=== PATIENT | female | born 1965 | race Caucasian/White ===

== ENCOUNTER 2017-08-06 06:13 | Inpatient (IN) | payer BC ==
[2017-08-06] MEDS ORDERED: ROCURONIUM 50 MG INJ ×2 (07:00→08:42)
[2017-08-06] MEDS ORDERED: PROPOFOL 200 MG INJ (07:00)
[2017-08-06] MEDS ORDERED: METOCLOPRAMIDE 10 MG INJ (07:00)
[2017-08-06] MEDS ORDERED: ONDANSETRON 4 MG INJ (07:00)
[2017-08-06] MEDS ORDERED: PROPOFOL 20 ML (07:51)
[2017-08-06] MEDS ORDERED: FENTAnyl 50 MCG/ML VIAL ×2 (07:51→08:42)
[2017-08-06] MEDS ORDERED: MIDAZOLAM 1 MG/ML 2 ML INJ (07:51)
[2017-08-06] MEDS: GELATIN SIZE 100 SPONGE (08:39)
[2017-08-06] MEDS: THROMBIN 5000 UNIT VIAL (08:39)
[2017-08-06] MEDS: POLYMYXIN/BACITRACIN 1L IRRIG (08:39)
[2017-08-06] MEDS: BUPIVACAINE 0.25%/EPI (MDV) 50 ML VIAL INJ (08:39)
[2017-08-06] MEDS ORDERED: LIDOCAINE 2% (SDV) 5 ML INJ (08:41)
[2017-08-06] MEDS ORDERED: SUCCINYLCHOLINE CHLORIDE 100 MG/5 ML SYG IV (08:41)
[2017-08-06] MEDS ORDERED: DEXAMETHASONE 4 MG/ML 1 ML INJ ×2 (08:42→13:05)
[2017-08-06] MEDS ORDERED: hydrALAzine 20 MG INJ (09:37)
[2017-08-06] MEDS ORDERED: LABETALOL HCL 20MG INJ (10:39)
[2017-08-06] MEDS ORDERED: HYDROmorphONE 2 MG/ML SYG (10:44)
[2017-08-06] MEDS ORDERED: PHENYLephrine (100 MCG/ML) 5ML SYG (10:57)
[2017-08-06] MEDS ORDERED: CLINDAMYCIN 900 MG/D5W (PMX) 50 ML IVPB (11:23)
[2017-08-06] MEDS ORDERED: LABETALOL HCL 20MG INJ IV (14:00)
[2017-08-06] MEDS ORDERED: hydrALAzine 20 MG INJ IV (14:00)
[2017-08-06] MEDS ORDERED: PROCHLORPERAZINE 10 MG TAB PO (14:00)
[2017-08-06] MEDS ORDERED: FENTAnyl 50 MCG/ML VIAL IV ×2 (14:00)
[2017-08-06] MEDS ORDERED: ACETAMINOPHEN 325 MG TAB PO (14:00)
[2017-08-06] MEDS ORDERED: IPRATROPIUM (NEB) 0.5 MG/2.5 ML AMP HHN (14:00)
[2017-08-06] MEDS ORDERED: NALOXONE (0.4 MG/ML) INJ IV (14:00)
[2017-08-06] MEDS ORDERED: DIPHENHYDRAMINE 50 MG INJ IV (14:00)
[2017-08-06] MEDS ORDERED: HYDROCODONE/APAP (5/325) TAB PO (14:00)
[2017-08-06] MEDS ORDERED: NACL 0.9% 3 ML SYG IV (14:00)
[2017-08-06] MEDS ORDERED: ONDANSETRON 4 MG INJ IV (14:00)
[2017-08-06] MEDS ORDERED: HYDROmorphONE 1 MG/5 ML IV SYRINGE IV ×2 (14:00)
[2017-08-06] MEDS ORDERED: MEPERIDINE 25 MG INJ (14:23)
[2017-08-06] MEDS: MEPERIDINE 25 MG INJ IV ×2 (14:54→17:34)
[2017-08-06] MEDS: HYDROmorphONE 1 MG/5 ML IV SYRINGE IV ×3 (15:15→16:27)
[2017-08-06] MEDS: ONDANSETRON 4 MG INJ IV (15:51)
[2017-08-06] MEDS: VANCOMYCIN 1 GM (PMX) 250 ML IVPB (16:40)
[2017-08-06] MEDS: HYDROmorphONE 0.5 MG/0.5 ML SYG IV ×2 (19:46→23:03)
[2017-08-06] MEDS: traZODone 100 MG TAB PO (21:08)
[2017-08-06] MEDS: morphine (ER) 15 MG TAB PO (21:08)
[2017-08-06] MEDS: PROGESTERONE 100 MG CAP PO (21:48)
[2017-08-07] MEDS: VANCOMYCIN 1 GM (PMX) 250 ML IVPB (04:17)
[2017-08-07 05:07] LABS: HEMOGLOBIN 14.4 g/dl (12.0-16.0)
[2017-08-07] MEDS: HYDROmorphONE 0.5 MG/0.5 ML SYG IV ×2 (05:15→11:25)
[2017-08-07 05:33] LABS: ANION GAP 16 (8-16); BLOOD UREA NITROGEN 12 mg/dl (7-20); CALCIUM 9.1 mg/dl (8.4-10.2); CARBON DIOXIDE 27 mmol/L (21-31); CHLORIDE 102 mmol/L (97-110); GLUCOSE 129 mg/dl (70-220); POTASSIUM 4.5 mmol/L (3.5-5.1); SODIUM 140 mmol/L (135-144)
[2017-08-07] MEDS: ESTRADIOL 1 MG TAB PO (08:48)
[2017-08-07] MEDS: morphine (ER) 15 MG TAB PO ×2 (08:48→20:47)
[2017-08-07] MEDS: SERTRALINE 100 MG TAB PO (08:49)
[2017-08-07] MEDS: LOSARTAN 50 MG TAB PO (08:49)
[2017-08-07] MEDS: HYDROCODONE/APAP (5/325) TAB PO ×2 (15:26→19:18)
[2017-08-07] MEDS: traZODone 100 MG TAB PO (20:45)
[2017-08-07] MEDS: PROGESTERONE 100 MG CAP PO (20:47)
[2017-08-08] MEDS: HYDROCODONE/APAP (5/325) TAB PO ×2 (05:50→10:17)
[2017-08-08] MEDS: morphine (ER) 15 MG TAB PO (08:23)
[2017-08-08] MEDS: LOSARTAN 50 MG TAB PO (08:23)
[2017-08-08] MEDS: SERTRALINE 100 MG TAB PO (08:23)
[2017-08-08] MEDS: ESTRADIOL 1 MG TAB PO (08:29)
== END 2017-08-08 11:27 | disposition home or self-care (01) | DRG 473 ==
LOC: REC 06:13 → MS1 17:50
PROC: 0RG20K0 Fusion of 2 or more Cervical Vertebral Joints with Nonautologous Tissue Substitute, Anterior Approach, Anterior Column, Open Approach (ICD-10-PCS; principal; 2017-08-06 07:30)
PROC: 0RT30ZZ Resection of Cervical Vertebral Disc, Open Approach (ICD-10-PCS; 2017-08-06 07:30)
DX: M50.021 Cervical disc disorder at C4-C5 level with myelopathy (principal); I10 Essential (primary) hypertension; J44.9 Chronic obstructive pulmonary disease, unspecified; F41.9 Anxiety disorder, unspecified; F32.9 Major depressive disorder, single episode, unspecified; N95.1 Menopausal and female climacteric states
CPT/HCPCS: 72110; 80048; 85014; 85018; 87086; 97116; 97163